=== PATIENT | female | born 1975 ===

== ENCOUNTER 2025-10-22 13:47 | Outpatient (CLI) | payer BC | END 2025-10-22 13:48 | disposition home or self-care (01) | LOC: CSHMAMMO 13:47 | PROVIDERS: ATTEND Student in an Organized Health Care Education/Training Program | DX: Z12.31 Encounter for screening mammogram for malignant neoplasm of breast (principal); R92.333 Mammographic heterogeneous density, bilateral breasts | CPT/HCPCS: 77063; 77067 ==